=== PATIENT | female | born 1960 | race Caucasian/White ===

== ENCOUNTER 2019-03-12 11:21 | Emergency (ER) | payer MEDICARE, OTHER, MEDICAID ==
[~2019-03-12] VITALS: Ht 162.6 cm; Wt 97.3 kg
[2019-03-12] MEDS ORDERED: LOSA50TA64 PO (11:38)
[2019-03-12] MEDS ORDERED: ATOR40TA28 PO (11:38)
[2019-03-12] MEDS ORDERED: ATOR10TA84 PO (11:38)
[2019-03-12 13:09] LABS: BASOPHILS % (AUTO) 0.6 % (0.0-2.0); EOSINOPHILS % (AUTO) 0.8 % (1.0-6.0); HEMATOCRIT 42.6 % (36-46); HEMOGLOBIN 14.1 g/dL (12.0-16.0); LYMPHOCYTES # (AUTO) 1.4 K/uL (1.0-4.8); LYMPHOCYTES % (AUTO) 43.2 % (22.0-44.0); MEAN CORPUSCULAR HEMOGLOBIN 29.8 pg (26.0-34.0); MEAN CORPUSCULAR HGB CONC 33.1 G/dL (31.0-37.0); MEAN CORPUSCULAR VOLUME 90 fL (80-100); MONOCYTES # (AUTO) 0.3 K/uL (0.1-1.0); MONOCYTES % (AUTO) 8.6 % (2.0-9.0); NEUTROPHILS # (AUTO) 1.5 K/uL (1.8-7.7); NEUTROPHILS % (AUTO) 46.8 % (40.0-70.0); PLATELET COUNT (AUTO) 398 K/uL (150-450); RED BLOOD CELL COUNT(AUTO) 4.74 MIL/uL (4.00-5.20); RED CELL DISTRIBUTION WIDTH 13.2 % (11.5-14.5)
[2019-03-12 13:20] LABS: ANION GAP 7 mmol/L (8-16); CALCIUM, TOTAL 9.6 mg/dL (8.8-10.5); CARBON DIOXIDE 29 mmol/L (22-29); CHLORIDE 103 mmol/L (98-107); CREATININE 0.53 mg/dL (0.60-1.30); GLOMERULAR FILTR. RATE CALC > 60 mL/min (>60); GLUCOSE,RANDOM 88 mg/dL (70-110); POTASSIUM 4.1 mmol/L (3.5-5.1); SODIUM SERUM 139 mmol/L (136-145); UREA NITROGEN, BLOOD 18 mg/dL (7-18)
[2019-03-12] MEDS ORDERED: KETOROLAC TROMETHAMINE 60 MG/2 ML VIAL IM ONE (14:00)
[2019-03-12 15:50] VITALS: BP 130/57
== END 2019-03-12 16:16 | disposition home or self-care (01) ==
LOC: EMS 11:21
DX: M79.605 Pain in left leg (principal); I10 Essential (primary) hypertension; E78.00 Pure hypercholesterolemia, unspecified; F17.210 Nicotine dependence, cigarettes, uncomplicated; Z90.710 Acquired absence of both cervix and uterus
CPT/HCPCS: 36415; 80048; 85025; 93971; 96372; 99284; J1885

== ENCOUNTER 2019-03-23 20:48 | Emergency (ER) | payer MEDICARE, OTHER, MEDICAID ==
[~2019-03-23 20:48] MED LIST: ATOR10TA84 PO; LOSA50TA64 PO
[2019-03-23] MEDS ORDERED: IBUP-2070 PO (21:08)
[2019-03-23] MEDS ORDERED: HYDR-4061 PO (21:08)
[2019-03-23 23:00] VITALS: BP 126/80
== END 2019-03-23 23:00 | disposition home or self-care (01) ==
LOC: EMS 20:48
DX: M79.672 Pain in left foot (principal); I10 Essential (primary) hypertension; E78.00 Pure hypercholesterolemia, unspecified; F17.210 Nicotine dependence, cigarettes, uncomplicated; Z76.0 Encounter for issue of repeat prescription; Z90.710 Acquired absence of both cervix and uterus

== ENCOUNTER 2019-05-07 05:15 | Day surgery (SDC) | payer OTHER ==
[~2019-05-07] VITALS: Ht 162.6 cm; Wt 96.8 kg
[~2019-05-07 05:15] MED LIST changes: -ATOR10TA84 PO; +CeFAZolin 2 GM/DEXTROSE 50 ML IV ONE; +HYDR-4061 PO; +IBUP-2070 PO; -LOSA50TA64 PO; +RINGERS SOLUTION,LACTATED 1,000 ML IV ONE
[2019-05-07] MEDS ORDERED: RINGERS SOLUTION,LACTATED 1,000 ML IV ONE ×2 (05:30→09:20)
[2019-05-07 06:00] LABS: BASOPHILS % (AUTO) 1.3 % (0.0-2.0); EOSINOPHILS % (AUTO) 2.1 % (1.0-6.0); HEMOGLOBIN 13.8 g/dL (12.0-16.0); LYMPHOCYTES % (AUTO) 40.3 % (22.0-44.0); MEAN CORPUSCULAR HEMOGLOBIN 30.1 pg (26.0-34.0); MEAN CORPUSCULAR HGB CONC 33.8 G/dL (31.0-37.0); MEAN CORPUSCULAR VOLUME 89 fL (80-100); MONOCYTES # (AUTO) 0.5 K/uL (0.1-1.0); MONOCYTES % (AUTO) 9.8 % (2.0-9.0); NEUTROPHILS # (AUTO) 2.3 K/uL (1.8-7.7); NEUTROPHILS % (AUTO) 46.5 % (40.0-70.0); PLATELET COUNT (AUTO) 380 K/uL (150-450)
[2019-05-07] MEDS ORDERED: CeFAZolin 2 GM/DEXTROSE 50 ML IV ONE (06:00)
[2019-05-07 06:12] LABS: ANION GAP 7 mmol/L (8-16); CALCIUM, TOTAL 9.2 mg/dL (8.8-10.5); CARBON DIOXIDE 30 mmol/L (22-29); CHLORIDE 102 mmol/L (98-107); CREATININE 0.56 mg/dL (0.60-1.30); GLOMERULAR FILTR. RATE CALC > 60 mL/min (>60); GLUCOSE,RANDOM 127 mg/dL (70-110); POTASSIUM 4.2 mmol/L (3.5-5.1); SODIUM SERUM 139 mmol/L (136-145); UREA NITROGEN, BLOOD 14 mg/dL (7-18)
[2019-05-07] MEDS ORDERED: BUPIVACAINE LIPOSOME/PF 1.3%-13.3MG/ML SUSPENSION 20 ML VIAL INJ ONE (07:15)
[2019-05-07] MEDS ORDERED: SODIUM CL IRRIG SOLN BAG 3,000 ML IRRIG ONE (07:33)
[2019-05-07] MEDS ORDERED: HYDROmorphone 2 MG/ML SYRINGE IVP PRN ×2 (09:00)
[2019-05-07] MEDS ORDERED: FentaNYL CITRATE-PF 100 MCG/2 ML VIAL IVP PRN (09:00)
[2019-05-07] MEDS ORDERED: MEPERIDINE-PF 25 MG/ML VIAL IVP PRN (09:00)
[2019-05-07] MEDS ORDERED: HYDROmorphone 2 MG/ML SYRINGE ONE (09:03)
[2019-05-07] MEDS ORDERED: MUPIROCIN CALCIUM 2% 22 GM OINTMENT ONE (09:20)
[2019-05-07] MEDS ORDERED: VANCOMYCIN HCL 1 GM/VIAL ONE (09:20)
[2019-05-07] MEDS ORDERED: BUPIVACAINE HCL/PF 0.5% 30 ML VIAL ONE (09:20)
[2019-05-07] MEDS ORDERED: SUCCINYLCHOLINE CHLORIDE 20 MG/ML 10 ML VIAL IVP ONE (12:00)
[2019-05-07] MEDS ORDERED: MIDAZOLAM HCL 2 MG/2 ML VIAL IVP ONE (12:00)
[2019-05-07] MEDS ORDERED: PROPOFOL 1% 20 ML VIAL IVP ONE (12:00)
[2019-05-07] MEDS ORDERED: FentaNYL CITRATE-PF 100 MCG/2 ML VIAL IVP ONE (12:00)
[2019-05-07] MEDS ORDERED: NEOSTIGMINE METHYLSULFATE 1 MG/ML 10 ML VIAL IVP ONE (12:00)
[2019-05-07] MEDS ORDERED: ONDANSETRON HCL 4 MG/2 ML VIAL IVP ONE (12:00)
[2019-05-07] MEDS ORDERED: ROCURONIUM BROMIDE 10 MG/ML 5 ML VIAL IVP ONE (12:00)
[2019-05-07] MEDS ORDERED: LIDOCAINE/PF 2% 5 ML VIAL INJ ONE (12:00)
[2019-05-07] MEDS ORDERED: GLYCOPYRROLATE 0.2 MG/ML VIAL IM ONE (12:00)
== END 2019-05-07 10:30 | disposition home or self-care (01) ==
LOC: SURGERY 05:15
PROVIDERS: ATTEND Orthopaedic Surgery
DX: M79.5 Residual foreign body in soft tissue (principal); L90.5 Scar conditions and fibrosis of skin; M71.88 Other specified bursopathies, other site; I10 Essential (primary) hypertension; E66.9 Obesity, unspecified; F17.210 Nicotine dependence, cigarettes, uncomplicated; Z72.89 Other problems related to lifestyle; Z79.899 Other long term (current) drug therapy; Z90.710 Acquired absence of both cervix and uterus; Z98.890 Other specified postprocedural states
CPT/HCPCS: 20525; 27600; 27619; 36415; 80048; 85025; 88300; 88302; 88304; 93005; C9290; J0330; J0690; J1170; J2250; J2405; J2704; J3010; J3370; J3490 ×4; J7120

== ENCOUNTER 2021-04-07 15:48 | Emergency (ER) | payer MEDICAID, MEDICARE, OTHER ==
[~2021-04-07] VITALS: Ht 167.6 cm; Wt 84.1 kg
[~2021-04-07 15:48] MED LIST changes: -CeFAZolin 2 GM/DEXTROSE 50 ML IV ONE; -RINGERS SOLUTION,LACTATED 1,000 ML IV ONE
[2021-04-07 15:49] VITALS: BP 142/85
== END 2021-04-07 17:51 | disposition home or self-care (01) ==
LOC: EMS 15:51
DX: J06.9 Acute upper respiratory infection, unspecified (principal); I10 Essential (primary) hypertension; E78.00 Pure hypercholesterolemia, unspecified; Z20.822 Contact with and (suspected) exposure to COVID-19
CPT/HCPCS: 99283; U0003

== ENCOUNTER 2022-11-18 14:40 | Emergency (ER) | payer OTHER ==
[~2022-11-18] VITALS: Ht 165.1 cm; Wt 109.1 kg
[~2022-11-18 14:40] MED LIST changes: +IBUP-1492 PO; -IBUP-2070 PO
[2022-11-18 14:48] VITALS: BP 167/97
[2022-11-18] MEDS ORDERED: SITA100 PO (14:54)
[2022-11-18] MEDS ORDERED: HYDR-3421 PO (14:54)
[2022-11-18] MEDS ORDERED: IBUP-2077 PO (14:54)
[2022-11-18] MEDS ORDERED: METF-446 PO (14:54)
[2022-11-18] MEDS ORDERED: ATOR40TA71 PO (14:54)
[2022-11-18] MEDS ORDERED: CYCL10TA16 PO (14:54)
[2022-11-18] MEDS ORDERED: LISI30TA4 PO (14:54)
[2022-11-18] MEDS ORDERED: IBUPROFEN 600 MG TABLET PO ONE (15:30)
[2022-11-18] MEDS ORDERED: IBUP-1492 PO (16:38)
== END 2022-11-18 17:02 | disposition home or self-care (01) ==
LOC: EMS 14:52
DX: M72.2 Plantar fascial fibromatosis (principal); E78.00 Pure hypercholesterolemia, unspecified; I10 Essential (primary) hypertension; F17.210 Nicotine dependence, cigarettes, uncomplicated; Z90.710 Acquired absence of both cervix and uterus; Z98.890 Other specified postprocedural states
CPT/HCPCS: 99283

== ENCOUNTER 2023-12-09 09:34 | Emergency (ER) | payer OTHER ==
[~2023-12-09] VITALS: Ht 165.1 cm; Wt 113.6 kg
[~2023-12-09 09:34] MED LIST changes: +ATOR40TA71 PO; +CYCL10TA16 PO; +HYDR-3421 PO; -HYDR-4061 PO; -IBUP-1492 PO; +IBUP-2077 PO; +LISI30TA4 PO; +METF-446 PO; +SITA100 PO
[2023-12-09 09:44] VITALS: TEMP 97.9
[2023-12-09] MEDS: TraMADol HCL 50 MG TABLET PO ONE (11:14)
[2023-12-09] MEDS ORDERED: TRAM50TA5 PO (11:56)
[2023-12-09 12:07] VITALS: BP 135/72; PULSE 75; RESP 20
== END 2023-12-09 12:17 | disposition home or self-care (01) ==
LOC: EMS 09:34
DX: M25.511 Pain in right shoulder (principal); E11.9 Type 2 diabetes mellitus without complications; E78.00 Pure hypercholesterolemia, unspecified; I10 Essential (primary) hypertension; F17.210 Nicotine dependence, cigarettes, uncomplicated; Z90.710 Acquired absence of both cervix and uterus
CPT/HCPCS: 71045; 99284

== ENCOUNTER 2024-01-20 11:08 | Inpatient (IN) | payer OTHER, MEDICARE ==
[~2024-01-20] VITALS: Ht 165.1 cm; Wt 112.8 kg
[~2024-01-20 11:08] MED LIST changes: +TRAM50TA5 PO
[2024-01-20 11:41] LABS: GLUCOMETER DEV NAME(LOC) ER.7; GLUCOSE,POINT OF CARE 425 MG/DL (70-110)
[2024-01-20] MEDS ORDERED: DULA0.75 SQ (11:43)
[2024-01-20] MEDS ORDERED: CHLO50TA PO (11:43)
[2024-01-20] MEDS ORDERED: AMLO10TA55 PO (11:43)
[2024-01-20] MEDS ORDERED: OMEP20TA20 PO (11:43)
[2024-01-20] MEDS: SODIUM CHLORIDE 0.9% 1,000 ML IV ONE (11:55)
[2024-01-20 12:07] LABS: BASOPHILS % (AUTO) 0.6 % (0.0-2.0); EOSINOPHILS % (AUTO) 3.9 % (1.0-6.0); HEMATOCRIT 43.9 % (36-46); HEMOGLOBIN 14.9 g/dL (12.0-16.0); LYMPHOCYTES # (AUTO) 1.6 K/uL (1.0-4.8); LYMPHOCYTES % (AUTO) 31.3 % (22.0-44.0); MEAN CORPUSCULAR VOLUME 88 fL (80-100); MONOCYTES # (AUTO) 0.4 K/uL (0.1-1.0); MONOCYTES % (AUTO) 7.5 % (2.0-9.0); NEUTROPHILS # (AUTO) 2.8 K/uL (1.8-7.7); NEUTROPHILS % (AUTO) 56.7 % (40.0-70.0); PLATELET COUNT (AUTO) 429 K/uL (150-450); RED BLOOD CELL COUNT(AUTO) 4.98 MIL/uL (4.00-5.20)
[2024-01-20 12:26] LABS: TROPONIN I-HIGH SENSITIVITY 8 ng/L (<51)
[2024-01-20 12:37] LABS: ANION GAP 12 mmol/L (8-16); CALCIUM, TOTAL 9.9 mg/dL (8.8-10.5); CARBON DIOXIDE 28 mmol/L (22-29); CHLORIDE 92 mmol/L (98-107); CREATININE 0.81 mg/dL (0.60-1.30); GLOMERULAR FILTR. RATE CALC > 60 mL/min (>60); SODIUM SERUM 131 mmol/L (136-145); UREA NITROGEN, BLOOD 9 mg/dL (7-18)
[2024-01-20 12:39] LABS: GLUCOSE,RANDOM 448 mg/dL (70-110); POTASSIUM 2.8 mmol/L (3.5-5.1)
[2024-01-20] MEDS: POTASSIUM CHLORIDE 40 MEQ in SODIUM CHLORIDE 0.9% 1,000 ML IV ONE (13:13)
[2024-01-20] MEDS: INSULIN REGULAR, HUMAN 100 UNITS/ML SQ ONE (13:16)
[2024-01-20 16:08] VITALS: BP 133/98; PULSE 101; RESP 18; TEMP 98.2
[2024-01-20 19:16] VITALS: BP 133/57; PULSE 88; RESP 18; TEMP 98.2
[2024-01-20] MEDS ORDERED: ACETAMINOPHEN 325 MG TABLET PO PRN (20:45)
[2024-01-20] MEDS ORDERED: ALBUTEROL SULFATE 2.5 MG/0.5 ML NEB SOLUTION NEB PRN (20:45)
[2024-01-20] MEDS ORDERED: HYDROCODONE/ACETAMINOPHEN 5-325 MG TABLET PO PRN (20:45)
[2024-01-20] MEDS ORDERED: ONDANSETRON HCL 4 MG/2 ML VIAL IVP PRN (20:45)
[2024-01-20] MEDS ORDERED: ZOLPIDEM TARTRATE 5 MG TABLET PO PRN (20:45)
[2024-01-20] MEDS ORDERED: MAGNESIUM HYDROXIDE SUSPENSION 30 ML UDCUP PO PRN (20:45)
[2024-01-20] MEDS ORDERED: TraMADol HCL 50 MG TABLET PO PRN (20:45)
[2024-01-20] MEDS ORDERED: MORPHINE SULFATE 2 MG/ML SYRINGE IVP PRN (20:45)
[2024-01-20] MEDS ORDERED: BISACODYL 10 MG RECTAL RECTAL SUPPOSITORY PR PRN (20:45)
[2024-01-20] MEDS ORDERED: IPRATROPIUM BROMIDE 0.5 MG/2.5 ML NEB SOLUTION NEB PRN (20:45)
[2024-01-20] MEDS: DOCUSATE SODIUM 100 MG CAPSULE PO SCH (21:00)
[2024-01-20 21:21] LABS: TROPONIN I-HIGH SENSITIVITY 11 ng/L (<51)
[2024-01-20 21:28] LABS: FREE T4 (FREE THYROXINE) 1.21 ng/dL (0.76-1.46); THYROID STIMULATING HORMONE 0.82 uIU/mL (0.36-3.74)
[2024-01-20] MEDS: METOPROLOL TARTRATE 25 MG TABLET PO SCH (22:12)
[2024-01-20] MEDS: POTASSIUM CHLORIDE 20 MEQ ER TABLET PO ONE (22:12)
[2024-01-20 22:56] LABS: GLUCOMETER DEV NAME(LOC) 5N.2C; GLUCOSE,POINT OF CARE 324 MG/DL (70-110)
[2024-01-20] MEDS: HEPARIN SODIUM,PORCINE 5,000 UNITS/ML VIAL SQ SCH (23:18)
[2024-01-20 23:21] VITALS: BP 140/69; PULSE 72; RESP 18; TEMP 98
[2024-01-21 05:05] VITALS: BP 126/72; PULSE 63; RESP 18; TEMP 98
[2024-01-21 06:04] LABS: BASOPHILS % (AUTO) 0.3 % (0.0-2.0); EOSINOPHILS % (AUTO) 5.2 % (1.0-6.0); HEMATOCRIT 39.4 % (36-46); HEMOGLOBIN 13.6 g/dL (12.0-16.0); LYMPHOCYTES # (AUTO) 1.5 K/uL (1.0-4.8); MEAN CORPUSCULAR HEMOGLOBIN 30.1 pg (26.0-34.0); MEAN CORPUSCULAR HGB CONC 34.4 G/dL (31.0-37.0); MEAN CORPUSCULAR VOLUME 88 fL (80-100); MONOCYTES # (AUTO) 0.5 K/uL (0.1-1.0); MONOCYTES % (AUTO) 11.7 % (2.0-9.0); NEUTROPHILS # (AUTO) 2.2 K/uL (1.8-7.7); NEUTROPHILS % (AUTO) 49.8 % (40.0-70.0); PLATELET COUNT (AUTO) 391 K/uL (150-450); RED CELL DISTRIBUTION WIDTH 12.8 % (11.5-14.5); WHITE BLOOD COUNT (AUTO) 4.4 K/uL (4.5-11.0)
[2024-01-21 06:23] LABS: ANION GAP 8 mmol/L (8-16); CALCIUM, TOTAL 9.5 mg/dL (8.8-10.5); CARBON DIOXIDE 30 mmol/L (22-29); CHLORIDE 97 mmol/L (98-107); CREATININE 0.57 mg/dL (0.60-1.30); GLOMERULAR FILTR. RATE CALC > 60 mL/min (>60); GLUCOSE,RANDOM 294 mg/dL (70-110); SODIUM SERUM 135 mmol/L (136-145); UREA NITROGEN, BLOOD 8 mg/dL (7-18)
[2024-01-21 06:26] LABS: POTASSIUM 2.9 mmol/L (3.5-5.1)
[2024-01-21 07:40] VITALS: BP 133/72; PULSE 69; RESP 16; TEMP 98
[2024-01-21] MEDS: PANTOPRAZOLE SODIUM 40 MG/VIAL IVP SCH (08:12)
[2024-01-21] MEDS: SitaGLIPtin PHOSPHATE 100 MG TABLET PO SCH (08:13)
[2024-01-21] MEDS: CHLORTHALIDONE 25 MG TABLET PO SCH (08:13)
[2024-01-21] MEDS: ATORVASTATIN CALCIUM 40 MG TABLET PO SCH (08:13)
[2024-01-21] MEDS ORDERED: [UNRECOGNIZED DRUG - OTHER] PO SCH (09:00)
[2024-01-21] MEDS ORDERED: [UNRECOGNIZED DRUG - OTHER] PO SCH (09:00)
[2024-01-21 10:06] LABS: GLUCOMETER DEV NAME(LOC) 5S.1B; GLUCOSE,POINT OF CARE 260 MG/DL (70-110)
[2024-01-21 11:41] VITALS: BP 120/72; PULSE 63; RESP 18; TEMP 97.8
[2024-01-21] MEDS: POTASSIUM CHLORIDE 20 MEQ ER TABLET PO ONE ×2 (15:25→17:17)
[2024-01-21 15:53] VITALS: BP 142/71; PULSE 67; RESP 18; TEMP 97.9
[2024-01-21 20:30] VITALS: BP 148/86; PULSE 79; RESP 16; TEMP 97.8
[2024-01-21] MEDS ORDERED: POTASSIUM CHL 10 MEQ/WATER 50 ML IV PRN (22:00)
[2024-01-21] MEDS: POTASSIUM CHLORIDE 20 MEQ ER TABLET PO PRN (22:06)
[2024-01-22 00:12] VITALS: BP 136/74; PULSE 68; RESP 16; TEMP 97.6
[2024-01-22 04:04] VITALS: BP 149/75; PULSE 67; RESP 18; TEMP 97.7
[2024-01-22 07:12] VITALS: BP 139/74; PULSE 79; RESP 18; TEMP 98
[2024-01-22] MEDS: LISINOPRIL 10 MG TABLET PO SCH (08:09)
[2024-01-22 08:16] LABS: GLUCOMETER DEV NAME(LOC) 5S.1B; GLUCOSE,POINT OF CARE 273 MG/DL (70-110)
[2024-01-22 08:16] LABS: GLUCOMETER DEV NAME(LOC) 5N.2C; GLUCOSE,POINT OF CARE 350 MG/DL (70-110)
[2024-01-22 11:25] VITALS: BP 111/67; PULSE 67; RESP 18; TEMP 98.1
[2024-01-22] MEDS ORDERED: MICONAZOLE NITRATE 2% 45 GM VAGINAL CREAM VG ONE (12:15)
[2024-01-22] MEDS ORDERED: METO25 PO (12:22)
[2024-01-22] MEDS ORDERED: SPIR-37 PO (12:22)
[2024-01-22 15:25] VITALS: BP 116/61; PULSE 70; RESP 18; TEMP 98
[2024-01-22] MEDS ORDERED: MICONAZOLE NITRATE 2% 45 GM VAGINAL CREAM VG SCH (21:00)
== END 2024-01-22 16:05 | disposition home or self-care (01) | DRG 641 ==
LOC: EMS 11:09 → 5N 13:12
PROVIDERS: ADMIT Hospitalist; ATTEND Hospitalist
DX: E87.6 Hypokalemia (principal); N39.0 Urinary tract infection, site not specified; R00.0 Tachycardia, unspecified; I10 Essential (primary) hypertension; B37.31 Acute candidiasis of vulva and vagina; R00.1 Bradycardia, unspecified; E78.5 Hyperlipidemia, unspecified; E11.65 Type 2 diabetes mellitus with hyperglycemia; Z82.49 Family history of ischemic heart disease and other diseases of the circulatory system; Z90.710 Acquired absence of both cervix and uterus; Z87.891 Personal history of nicotine dependence
CPT/HCPCS: 71045; 80048; 82962; 83735; 84132; 84439; 84443; 84484; 85025; 93005; 93306; 99285; C9113; J1644; J1815; J3480; J7030; 36415-L1; 36415-TC